=== PATIENT | female | born 1955 | race Caucasian/White ===

== ENCOUNTER 2020-11-26 01:20 | Emergency (ER) | payer MEDICARE ==
[~2020-11-26] VITALS: Ht 165.1 cm; Wt 93.0 kg
[~2020-11-26 01:20] MED LIST: ASPIR-LOW81 MG PO; COREG12.5 MG PO; FISH OIL 1,0001 EAC5 PO; LASIX40 MG PO; LEVOTHYROXINE50 MCG PO; LOSARTAN POTASS50 MG PO; LOVASTATIN20 MG PO; MECLIZINE HCL25 MG PO; MELATONIN1 MG PO; NEXIUM20 MG PO; OMEPRAZOLE20 M1 PO; SPIRONOLACTONE25 MG PO; TYLENOL325 MG PO; VITAMIN D1000 UNIT PO
[2020-11-26] MEDS ORDERED: CALCIUM CARBON600 M1 PO (01:47)
[2020-11-26] MEDS ORDERED: OPDIVO100 MG/10 IV (01:48)
[2020-11-26] MEDS ORDERED: HYDROCODON-ACE1 EA10 PO (02:36)
[2020-11-26] MEDS ORDERED: DICLOFENAC SODI75 MG PO (02:36)
--- NOTE | 2020-11-27 13:34 | EKG ---
[facility] [address] [facility] [place] [address] Signed Normal sinus rhythm Left bundle branch block Abnormal ECG When compared with ECG of 15-OCT-2018 12:38, Left bundle branch block is now present Confirmed by MELLISA ODOM MD ([id number]) on 11/27/2020 1:34:12 PM Electronically Signed By: MELLISA ODOM MD 11/27/20 1334 PATIENT NAME: SINDY GAITAN MAGO Electrocardiogram DATE OF : 51 PHYSICIAN: MELLISA ODOM MD REPORT #: [id number] REPORT IS CONFIDENTIAL AND NOT TO BE RELEASED WITHOUT AUTHORIZATION
== END 2020-11-26 03:01 | disposition home or self-care (01) ==
LOC: ED 01:20
DX: R07.89 Other chest pain (principal); Z85.3 Personal history of malignant neoplasm of breast; Z79.899 Other long term (current) drug therapy; Z79.82 Long term (current) use of aspirin; I50.9 Heart failure, unspecified
CPT/HCPCS: 71045; 80053; 83735; 84484; 85025; 93005; 93010; 96374; 99285-25; J1885

== ENCOUNTER 2020-12-31 10:07 | Emergency (ER) | payer MEDICARE ==
[~2020-12-31] VITALS: Ht 165.1 cm; Wt 87.5 kg
[~2020-12-31 10:07] MED LIST changes: +CALCIUM CARBON600 M1 PO; +DICLOFENAC SODI75 MG PO; +HYDROCODON-ACE1 EA10 PO; +OPDIVO100 MG/10 IV; -VITAMIN D1000 UNIT PO; +VITAMIN D310 MC3 PO
[2020-12-31] MEDS ORDERED: MECLIZINE HCL25 MG PO (13:26)
[2020-12-31] MEDS ORDERED: ZOFRAN4 MG PO (13:26)
--- NOTE | 2020-12-31 14:36 | EKG ---
[facility] [address] [facility] [place], [place] [address] Signed Normal sinus rhythm Left axis deviation Left ventricular hypertrophy with QRS widening and repolarization abnormality Abnormal ECG When compared with ECG of 26-NOV-2020 01:26, Left bundle branch block is no longer present Confirmed by PERNELL FRASER DO ([id number]) on 12/31/2020 2:36:40 PM Electronically Signed By: PERNELL FRASER DO 12/31/20 1436 PATIENT NAME: SINDY GAITAN MAGO Electrocardiogram DATE OF : 51 PHYSICIAN: PERNELL FRASER DO REPORT #: [id number] REPORT IS CONFIDENTIAL AND NOT TO BE RELEASED WITHOUT AUTHORIZATION
== END 2020-12-31 13:50 | disposition home or self-care (01) ==
LOC: ED 10:07
DX: H72.91 Unspecified perforation of tympanic membrane, right ear (principal); E86.0 Dehydration; R42 Dizziness and giddiness; Z85.3 Personal history of malignant neoplasm of breast; I50.9 Heart failure, unspecified; Z79.899 Other long term (current) drug therapy; Z79.82 Long term (current) use of aspirin
CPT/HCPCS: 70450; 80053; 81001; 83605; 83690; 84484; 85025; 93005; 93010; 96374; 96375; 99284-25; J1885; J2405; J7030